=== PATIENT | male | born 1985 ===

== ENCOUNTER 2025-01-27 10:05 | Outpatient (REF) | payer OTHER, SELFPAY ==
--- OUTSIDE RECORDS SUMMARY | 2025-01-28 10:08 | XMS_ITS | Patient Health Record ---
Author Organization [employer] Address [address] [place] [address] [address] [place] [address] Support Name Relationship Address Phone KARLI REDMOND Guarantor Unknown [phone] Reason For Referral No Information Plan Of Treatment Pending Test Test Name Order Date CHLAMYDIA GC AMP PROBE, URINE 12/25/2022 COMPREHENSIVE METABOLIC PANEL 12/25/2022 HEPATITIS C VIRAL LOAD, RNA, QUANTIFICAT ION 12/25/2022 HIV ANTIBODY/ANTIGEN, 4TH GENERATION 06/2023 LIPID PANEL 12/25/2022 SYPHILIS TESTING 12/25/2022 Insurance Providers Payer Name Payer Address Payer Phone Subscriber Number Group Number Insured Name Patient Relationship to Insured Coverage Start Date Coverage End Date [facility] [address] [place] [phone] [id number] KARLI REDMOND Self - patient is the insured
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
--- OUTSIDE RECORDS SUMMARY | 2025-01-28 10:08 | XMS_ITS | Clinical Summary ---
Author Organization [employer] Address [address] [facility] [address] [place] [address] Care Team Providers Care Passenger Booking Clerk Name Role Phone Unavailable Primary Care Provider Unavailabl e Encounters Date Type Department Care Team Description 01/18/2025 Population Health Risk Score [facility] ([facility]) Department [address] [facility] [address] [place] [id number] Provider, Population Health Generic 01/04/[address] [facility] [address] [place] [address] [phone] Nazario Alexander MD from Last 3 Months Social History Tobacco Use Types Packs/Day Years Used Date Smoking Tobacco: Never Assessed Sex and Gender Information Value Date Recorded Sex Assigned at Male 01/04/2025 2:27 PM EDT Legal Sex Male 1:35 PM EDT Gender Identity Not on file Sexual Orientation Not on file Plan of Treatment Health Maintenance Due Date Last Done Comments Depression Screening 1985 HIV Screening 1985 Lipid Panel 1985 SDOH Screening 1985 Alcohol/Substance Use Screening 1997 Tobacco Screening 1997 Family Planning (PISQ) 2000 Hepatitis C Screening 2003 DTaP/Tdap/Td Vaccines (1 - Tdap) 2004 Hepatitis B Vaccines (1 of 3 - 19+ 3-dose series) 2004 COVID-19 Vaccine ( - 2023-2 5 season) 2024 Influenza Vaccine (#1) 2024 Zoster Vaccines (1 of 2) 2035 RSV Patients and Pa tients Aged 60 years or older (1 - 1-dose 75+ series) 2060 HIB Vaccines Aged Out No longer eligi [...] patient's age to complete this topic Meningococcal Vaccine Aged Out No rhea dex eligible based on patient's age to complete this topic Pneumococcal Vaccine: Pediat rics (0 to 5 Years) and At-Risk Patients (6 to 49) Years) Aged Out No longer eligible b ased on patient's age to complete this topic RSV under 20 months Aged Out No longe r eligible based on patient's age to complete this topic Rotavirus Vaccines Aged Out No longer eligible based on patient's age to complete this topic [place] [address] [place] [address] C3
== END 2025-01-27 10:06 | disposition home or self-care (01) ==
LOC: HO.HOSX 10:05
PROVIDERS: Visit Provider Physician Assistant
DX: Z13.89 Encounter for screening for other disorder (principal)